=== PATIENT | male | born 2000 | race Caucasian/White ===

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

== ENCOUNTER 2025-01-20 20:23 | Emergency (ER) | payer OTHER ==
[~2025-01-20] VITALS: Ht 177.8 cm; Wt 72.7 kg
--- NOTE | 2025-01-20 20:39 | ED.PDOC ---
Musculoskeletal HPI Comments 24-year-old male who came to ER for left shoulder pain. Patient states he was reaching for something earlier, he felt his left shoulder pop. Noted pain and deformity over his left shoulder. Patient does have history of right shoulder dislocation. He never dislocated his left shoulder before. REVIEW OF SYSTEMS: No fever, no chills, or fatigue HEENT: No sore throat, no earache, no congestion, no neck pain. Cardiac: No chest pain. No palpitations. Lungs: No shortness of breath, no cough. GI: No nausea, no vomiting, no diarrhea, no constipation, no abdominal pain : No dysuria, frequency, or urgency. No hematuria. Musculoskeletal: (+) left shoulder joint pain , no joint swelling, no extremity edema. Skin: No rash, no itching. Neuro: No headache, no dizziness, no weakness PHYSICAL EXAM: General: Awake, alert and oriented. No acute distress. Skin: Skin in warm, dry and intact without rashes or lesions. HEENT: The head is normocephalic and atraumatic. Conjunctivae are clear without exudates or hemorrhage. Sclera is non-icteric. Neck: Normal range of motion. No JVD. Cardiac: Regular rate Respiratory: No signs of respiratory distress. No Stridor. Extremities: Left shoulder with obvious deformity, decreased range of motion. Good distal pulse and sensation. Neurological: The patient is awake, alert and oriented to person, place, and time with normal speech. Speech is clear. There is no facial asymmetry. Psychiatric: Appropriate mood and affect. Good judgement and insight. Chief Complaint: Upper extremity Time Seen by MD: 20:38 Primary Care Provider: NONE Reviewed Notes: Nurses Notes Allergies: Coded Allergies: NO KNOWN ALLERGIES (Unverified , 01/18/20) Home Meds Active Scripts Ibuprofen (Ibuprofen) 600 Mg Tab, 1 TAB PO TID PRN for 5 Days, #15 TAB Prov:CLAYTON PENNINGTON MD 01/21/25 Acetaminophen (Acetaminophen Er) 650 Mg Tab, 650 MG PO TIDPRN PRN for 5 Days, #15 TAB Prov:CLAYTON PENNINGTON MD 01/21/25 Information Source: Patient Mode of Arrival: EMS Location: Left Extremity Location: Shoulder (Shoulder) Timing: Minutes Severity: Moderate Able to Move Extremity: No Bear Weight: Limited Pain: Moderate Mechanism: Hyperextension, Spontaneous Circumstances: Spontaneous Onset of Symptoms: Spontaneous Associated signs and symptoms: Shoulder pain Past Medical History PAST MEDICAL HISTORY: Denies Surgical History (Other): Right shoulder dislocation Family History Family History: Reviewed,noncontributory to illness Social History Smoker: Non-Smoker Alcohol: Denies ETOH Use Drugs: Denies Drug Use Lives In: Home Was a procedure done? Was a procedure done?: Yes Sedation Sedation?: Yes Informed consent obtained: Yes Sedation start time: 21:50 Sedation end time: 22:00 Sedation total time: 10 minutes Reduction Indication: Dislocation (Left shoulder) Sedation: Consents obtained Post-reduction x-ray show: Reduction Informed consent obtained: Yes Risks/benefits/alt described: Yes Notes Procedure performed by PERNELL Galvan. I was not requested to be at bedside during the procedure. Patient was examined after the procedure, found to be neurovascularly intact with reduction of the left shoulder dislocation. Differential Diagnosis EXT Differential Diagnosis: Fracture, Sprain, Dislocation X-Ray, Labs, Meds, VS Vital Signs Date Time Temp Pulse Resp B/P (MAP) Pulse Ox O2 Delivery O2 Flow Rate FiO2 01/21/25 01:05 89 16 114/65 (81) 99 01/21/25 00:00 99 17 105/62 (76) 99 01/20/25 23:00 99.2 100 17 121/80 (94) 99 99.2 01/20/25 22:00 99.2 100 16 119/72 (88) 99 99.2 01/20/25 21:50 97 12 96 2.0 28 82 15 96 99 97 01/20/25 21:46 79 17 100 Room Air* 0 21 01/20/25 21:46 99.2 98 17 115/76 (89) 98 99.2 01/20/25 21:27 106/79 01/20/25 20:46 98.1 92 20 119/79 98 98.1 Time of 1ST Reevaluation: 20:36 Reevaluation 1ST: Unchanged Patient Education/Counseling: Diagnosis, Treatment Family Education/Counseling: No Family Present Departure 1 Departure Time of Disposition: 00:32 Impression: Primary Impression: Dislocation of left shoulder joint Disposition: 01 HOME / SELF CARE / HOMELESS Condition: Stable Additional Instructions: ED DISCHARGE INSTRUCTIONS Instructions: Please read all instructions provided in this packet carefully. Wear the sling until you follow up with your primary care provider or the loss prevention specialist. Although you have been discharged from the Emergency Department, this does not mean that you have a "clean bill of health". No definitive diagnosis for your symptoms has been made today. It is possible that you are in the process of developing a serious illness. This is why you must return to the ED without fail if any new or worsening symptoms (especially if your symptoms include chest pain, trouble breathing, abdominal pain, fever, headache, confusion, trouble seeing, or trouble walking) It is also very important that you see a primary care provider (PCP) within the next 3-5 days to follow up. We will need a referral to see an orthopedic specia list. If you are unable to get an appointment, return to the ED for re-evaluation. Dislocated Shoulder: Care Instructions Table of Contents Overview How can you care for yourself at home? When should you call for help? Credits The bones and some of the tissues in the shoulder Overview When the upper arm comes out of the shoulder socket, it is called a dislocated shoulder. After the doctor puts the shoulder back in place, the doctor may put your arm in a sling or brace to keep it from moving. Exercise and physical therapy can help your shoulder get strong and move normally again. It may take up to a year for your shoulder to heal and be pain free. If your shoulder keeps coming out of place, talk to your doctor about surgery. It can prevent dislocations. You may have had a sedative to help you relax. You may be unsteady after sedation. It can take a few hours for the effects to wear off. Side effects of sedation may include nausea, vomiting, and feeling sleepy or tired. The doctor has checked you carefully, but problems can develop later. If you notice any problems or new symptoms, get medical treatment right away. Follow-up care is a simon part of your treatment and safety. Be sure to make and go to all appointments, and call your doctor if you are having problems. It's also a good idea to know your test results and keep a list of the medicines you take. How can you care for yourself at home? If the doctor gave you a sedative: For 24 hours, don't do anything that requires attention to detail. This includes going to work, making important decisions, or signing any legal documents. It takes time for the medicine's effects to completely wear off. For your safety, do not drive or operate any machinery that could be dangerous. Wait until the medicine wears off and you can think clearly and react easily. If your doctor put your arm in a sling or shoulder immobilizer, wear it as directed. Take pain medicines exactly as directed. If the doctor gave you a prescription medicine for pain, take it as prescribed. If you are not taking a prescription pain medicine, ask your doctor if you can take an ccil-oil-dfrxjaj medicine. Put ice or a cold pack on your shoulder for 10 to 20 minutes at a time. Try to do this every 1 to 2 hours for the next 3 days (when you are awake). Put a thin cloth between the ice and your skin. You may use warm packs after the first 3 days for 15 to 20 minutes at a time. This can ease pain. If your doctor gave you exercises to do at home, do them exactly as your doctor told you. Do not do anything that makes the pain worse. When should you call for help? Call 911 anytime you think you may need emergency care. For example, call if: You have trouble breathing. You passed out (lost consciousness). Call your doctor now or seek immediate medical care if: You have new or worse nausea or vomiting. You have new or worse pain. Your hand or fingers are cool or pale or change color. You have tingling, weakness, or numbness in your hand or fingers. Watch closely for changes in your health, and be sure to contact your doctor if: You do not get better as expected. Credits for Dislocated Shoulder: Care Instructions Current as of: January 12, 2024 Author: [email or web address] Staff Clinical Review Board All [email or web address] education is reviewed by a team that includes physicians, nurses, advanced practitioners, registered dieticians, and other healthcare professionals. e-Prescriptions Ibuprofen (Ibuprofen) 600 Mg Tab 1 TAB PO TID PRN for 5 Days, #15 TAB Prov: CLAYTON PENNINGTON MD 01/21/25 Acetaminophen (Acetaminophen Er) 650 Mg Tab 650 MG PO TIDPRN PRN for 5 Days, #15 TAB Prov: CLAYTON PENNINGTON MD 01/21/25 Comments 24-year-old male status was left shoulder dislocation Dislocation reduced in the ED. patient advised to follow up with PCP for referral to Orthopedics Critical Care Note Critical Care Time?: No Stability Stability form required: No Heart Score Heart Score: Heart Score Response (Comments) Value History N/A 0 EKG N/A 0 Age N/A 0 Risk Factors N/A 0 Troponin N/A 0 Total 0 I personally scribed for CLAYTON PENNINGTON MD ([email or web address]) on 01/20/25 at 20:39. Electronically submitted by Onesimo Pinto ([email or web address]). I personally scribed for CLAYTON PENNINGTON MD ([email or web address]) on 01/20/25 at 21:13. Electronically submitted by Onesimo Pinto ([email or web address]). CLAYTON PENNINGTON MD Jan 20, 2025 20:39
[2025-01-20] MEDS: KETOROLAC TROMETH 30 MG/ML 1ML VIAL IV ONE (21:07)
[2025-01-20] MEDS: LORazepam 2MG/ML-1ML VIAL IV ONE (21:20)
[2025-01-20] MEDS: fentaNYL CITRATE 100 MCG/2 ML VL IV ONE (21:27)
[2025-01-20 21:46] VITALS: PULSE 79; RESP 17; O2SAT 100
[2025-01-20] MEDS: ETOMIDATE (2MG/ML) 20ML VIAL IV ONE ×2 (21:52)
--- NOTE | 2025-01-20 22:32 | DVH ---
CLINICAL INDICATION: Left shoulder dislocation TECHNIQUE: 5 radiographic views of the left shoulder were obtained. Comparison: R SHOULDER 1V XRAY on DOS: 07/02/21, R SHOULDER COMPLETE XRAY on DOS: 07/02/21, R SHOULDER 1V XRAY on DOS: 11/30/20 FINDINGS/IMPRESSION: Anterior dislocation of the left humerus No fracture seen The left humerus is noted in appropriate position There are 2 images demonstrating dislocation. 2 images demonstrating the appropriate position; reduced dislocation. Image of the right shoulder is taking
[2025-01-20 23:00] VITALS: TEMP 99.2
[2025-01-21] MEDS ORDERED: ACET650T12 PO (00:34)
[2025-01-21] MEDS ORDERED: IBUP-1454 PO (00:34)
[2025-01-21 01:05] VITALS: BP 114/65; PULSE 89; RESP 16; O2SAT 99
== END 2025-01-21 01:06 | disposition home or self-care (01) ==
LOC: EDUNIT# 20:23 → EDBD 20:23 → ER 20:23
DX: S43.005A Unspecified dislocation of left shoulder joint, initial encounter (principal); X58.XXXA Exposure to other specified factors, initial encounter; Y93.89 Activity, other specified; Y92.89 Other specified places as the place of occurrence of the external cause; Y99.8 Other external cause status
CPT/HCPCS: 23650; 73030; 96374; 96375; 99152; 99285; J1885; J2060; J3010